=== PATIENT | male | born 1945 | race Caucasian/White ===

== ENCOUNTER → 2016-10-16 | Outpatient (CLI) | payer OTHER ==
[2015-03-29 08:50] VITALS: BP 139/98
[~2016-10-16] MED LIST: FURO-68 PO; SPIR1TAB PO; VENTOLIN HFA18 GM IH
--- NOTE | 2016-10-16 09:06 | RAD ---
Indication abdominal pain. Evaluate for potential cirrhosis. The examination was targeted to the right upper quadrant. No prior imaging is available. A focal mass lesion is not seen in the visualized liver. There is some increased attenuation of the ultrasound beam by the liver compatible with fatty infiltration. The gallbladder appears normal. The common bile duct diameter of approximately 5 mm is normal. The right kidney appears unremarkable. The visualized inferior vena cava appeared normal. The pancreas was poorly visualized and largely obscured. IMPRESSION: Fatty infiltration of the liver. No definite acute or significant finding seen in the right upper quadrant
== END | disposition home or self-care (01) ==
LOC: US 07:38
PROVIDERS: ATTEND Family Medicine
DX: F10.10 Alcohol abuse, uncomplicated (principal); R10.9 Unspecified abdominal pain; K74.60 Unspecified cirrhosis of liver
CPT/HCPCS: 76705

== ENCOUNTER 2017-05-01 19:53 | Inpatient (IN) | payer OTHER ==
[2017-05-01 20:13] LABS: BASO % 0 % (0-3); EOS % 0 % (0-3); HEMATOCRIT 45.3 % (39.0-53.0); HEMOGLOBIN 15.4 g/dL (13.0-17.5); LYMPH # 0.8 x10^3/uL (1.0-4.8); LYMPH % 4 % (24-48); MEAN CORPUSCULAR HEMOGLOBIN 31 pg (25-35); MEAN CORPUSCULAR HGB CONC 34 g/dL (31-37); MEAN CORPUSCULAR VOLUME 92 fL (79-100); MONO # 1.5 x10^3/uL (0.0-1.1); MONO % 8 % (0-9); NEUT # 17.1 x10^3uL (1.8-7.7); NEUT % 88 % (31-73); PLATELET COUNT 343 x10^3/uL (140-400); RED BLOOD COUNT 4.91 x10^6/uL (4.30-5.70); RED CELL DISTRIBUTION WIDTH 13.6 % (11.5-14.5); WHITE BLOOD COUNT 19.4 x10^3/uL (4.0-11.0)
[2017-05-01 20:14] LABS: ADD MAN DIFF? YES
[2017-05-01 20:15] LABS: BILIRUBIN,URINE SMALL (NEG); CLARITY,URINE CLEAR; COLOR,URINE YELLOW; GLUCOSE,URINE NEGATIVE (NEG); NITRITE,URINE NEGATIVE (NEG); PROTEIN,URINE 100 mg/dL (NEG-TRACE)
[2017-05-01 20:20] LABS: RBC,URINE OCC /HPF (0-2)
[2017-05-01 20:21] LABS: BACTERIA,URINE 0 /HPF (0-FEW); HYALINE CASTS, URINE MODERATE /HPF; WBC,URINE 0 /HPF (0-4)
[2017-05-01 20:22] LABS: BARBITURATES NEG (NEG); BENZODIAZEPINES NEG (NEG); CANNABINOIDS NEG (NEG); COCAINE NEG (NEG); METHADONE NEG (NEG); OPIATES NEG (NEG); PHENCYCLIDINE NEG (NEG)
[2017-05-01 20:23] LABS: PROTHROMBIN TIME PATIENT 12.8 SEC (11.7-14.0)
[2017-05-01 20:26] LABS: ANION GAP 9 (6-14); BLOOD UREA NITROGEN 17 mg/dL (8-26); BUN/CREATININE RATIO 21 (6-20); CALCIUM 9.1 mg/dL (8.5-10.1); CARBON DIOXIDE 35 mmol/L (21-32); CHLORIDE 90 mmol/L (98-107); CREATININE 0.8 mg/dL (0.7-1.3); GFR 95.8; GLUCOSE 117 mg/dL (70-99); POTASSIUM 3.4 mmol/L (3.5-5.1); SODIUM 134 mmol/L (136-145)
[2017-05-01 20:27] LABS: ETHANOL < 10 mg/dL (0-10)
[2017-05-01 20:27] LABS: AMPHETAMINE/METHAMPHETAMINE NEG (NEG); ETHANOL, URINE NEG (NEG)
[2017-05-01 20:34] LABS: LACTIC ACID 1.8 mmol/L (0.4-2.0)
[2017-05-01 20:34] LABS: ALBUMIN 3.8 g/dL (3.4-5.0); ALK PHOS 52 U/L (46-116); ALT (SGPT) 87 U/L (16-63); AST (SGOT) 239 U/L (15-37); LIPASE 45 U/L (73-393); TOTAL BILIRUBIN 0.6 mg/dL (0.2-1.0); TOTAL PROTEIN 7.7 g/dL (6.4-8.2)
[2017-05-01 20:36] LABS: TROPONINI 0.061 ng/mL (0.000-0.055)
[2017-05-01] MEDS ORDERED: PIP/TAZO PER PHARMACY MC (20:45)
[2017-05-01 20:47] LABS: BASE EXCESS ABG 8 mmol/L (-3-3); HCO3 ABG 35 mmol/L (21-28); PCO2 ABG 54 mmHg (35-46); PH ABG 7.42 (7.35-7.45); PO2 ABG 311 mmHg (65-108); SAT O2 ABG 99 % (92-99)
[2017-05-01 21:10] LABS: CREATINE KINASE 9384 U/L (39-308)
[2017-05-01 21:16] LABS: % BANDS 5 % (0-9); % LYMPHS 6 % (24-48); % MONOS 7 % (0-10); % SEGS 82 % (35-66); PLT ESTIMATE ADEQUATE (ADEQUATE)
[2017-05-01 21:21] LABS: INFLUENZA A PATIENT NEGATIVE (NEGATIVE); INFLUENZA B PATIENT NEGATIVE (NEGATIVE); OBC FLU VALID
[2017-05-01] MEDS ORDERED: VANCOMYCIN 2 GM in IV DEXTROSE 5% 500 ML IV (21:30)
[2017-05-01] MEDS: PIPERACILLIN/TAZO IV Push 4.5 GM VIAL. IVP (21:31)
[2017-05-01] MEDS: IV NORMAL SALINE 1000ML BAG 1,000 ML IV (21:32)
[2017-05-01] MEDS: VANCOMYCIN 2 GM in IV DEXTROSE 5 %-0.2 % NACL 500 ML IV (21:33)
[2017-05-01] MEDS: ASPIRIN 300 MG SUPP.RECT PR (21:34)
[2017-05-01] MEDS ORDERED: SODIUM BICARBONATE VIAL 50 MEQ in IV 1/2 NORMAL SALINE 1,000 ML IV (22:00)
[2017-05-01] MEDS: SODIUM BICARBONATE VIAL 150 MEQ in IV STERILE WATER 1,000 ML IV (22:16)
[2017-05-01] MEDS: FOSPHENYTOIN IV (22:17)
[2017-05-01] MEDS: NORMAL SALINE IV (22:17)
[2017-05-02] MEDS: VANCOMYCIN PER PHARMACY MC ×2 (00:37→10:49)
[2017-05-02] MEDS: MULTIVIT INFUSN,ADULT 4,VIT K 10 ML, THIAMINE 100 MG, FOLIC ACID 1 MG in IV RINGERS,LAC... IV (01:32)
[2017-05-02 05:20] LABS: ADD MAN DIFF? NO
[2017-05-02] MEDS: PIPERACILLIN/TAZO IV Push 3.375 GM VIAL. IVP ×3 (05:47→17:56)
[2017-05-02 05:55] LABS: BASO % 0 % (0-3); EOS % 0 % (0-3); HEMATOCRIT 36.5 % (39.0-53.0); HEMOGLOBIN 12.2 g/dL (13.0-17.5); LYMPH # 1.3 x10^3/uL (1.0-4.8); LYMPH % 8 % (24-48); MEAN CORPUSCULAR HEMOGLOBIN 31 pg (25-35); MEAN CORPUSCULAR HGB CONC 33 g/dL (31-37); MEAN CORPUSCULAR VOLUME 93 fL (79-100); MONO # 1.7 x10^3/uL (0.0-1.1); MONO % 10 % (0-9); NEUT # 13.7 x10^3uL (1.8-7.7); NEUT % 82 % (31-73); PLATELET COUNT 295 x10^3/uL (140-400); RED BLOOD COUNT 3.94 x10^6/uL (4.30-5.70); RED CELL DISTRIBUTION WIDTH 14.1 % (11.5-14.5); WHITE BLOOD COUNT 16.7 x10^3/uL (4.0-11.0)
[2017-05-02 06:16] LABS: ALBUMIN 2.8 g/dL (3.4-5.0); ALBUMIN/GLOBULIN RATIO 0.9 (1.0-1.7); ALK PHOS 37 U/L (46-116); ALT (SGPT) 77 U/L (16-63); ANION GAP 3 (6-14); AST (SGOT) 213 U/L (15-37); BLOOD UREA NITROGEN 17 mg/dL (8-26); BUN/CREATININE RATIO 21 (6-20); CARBON DIOXIDE 40 mmol/L (21-32); CHLORIDE 93 mmol/L (98-107); CREATININE 0.8 mg/dL (0.7-1.3); GFR 95.8; GLUCOSE 118 mg/dL (70-99); SODIUM 136 mmol/L (136-145); TOTAL BILIRUBIN 0.6 mg/dL (0.2-1.0)
[2017-05-02 06:28] LABS: POTASSIUM 2.6 mmol/L (3.5-5.1)
[2017-05-02 06:35] LABS: THYROID STIM HORMONE (TSH) 0.338 uIU/mL (0.358-3.74)
[2017-05-02 06:44] LABS: CREATINE KINASE 7620 U/L (39-308)
[2017-05-02] MEDS: POTASSIUM CHLORIDE 20 MEQ/15 ML ORAL LIQUID. PEG (07:51)
[2017-05-02] MEDS: SODIUM BICARBONATE VIAL 50 MEQ in IV 1/2 NORMAL SALINE 1,000 ML IV (07:51)
[2017-05-02] MEDS: FOLIC ACID 1 MG TABLET. PO (08:38)
[2017-05-02] MEDS: MULTIVITAMIN with MINERAL TABLET. PO (08:38)
[2017-05-02] MEDS: LACTOBACILLUS RHAMNOSUS GG 1 CAPSULE. PO (08:38)
[2017-05-02] MEDS: THIAMINE 100 MG TABLET. PO (08:38)
[2017-05-02] MEDS: VANCOMYCIN 1.25 GM in IV DEXTROSE 5% 250 ML IV ×2 (09:08→21:31)
[2017-05-02] MEDS: IPRATRPIUM/ALBUTEROL 0.5/2.5MG 3 ML NEBU. NEB ×4 (09:11→19:30)
[2017-05-02] MEDS ORDERED: ACETAMINOPHEN 650 MG SUPP.RECT. PR (09:45)
[2017-05-02] MEDS: ENOXAPARIN 40 MG/0.4 ML SYRINGE. SQ ×2 (09:58)
[2017-05-02] MEDS: IV NORMAL SALINE 1000ML BAG 1,000 ML IV ×8 (09:58→15:56)
[2017-05-02] MEDS ORDERED: IV NORMAL SALINE 1000ML BAG 1,000 ML IV (10:15)
[2017-05-02 11:06] LABS: ANION GAP 3 (6-14); BLOOD UREA NITROGEN 16 mg/dL (8-26); CALCIUM 7.5 mg/dL (8.5-10.1); CARBON DIOXIDE 37 mmol/L (21-32); CHLORIDE 96 mmol/L (98-107); CREATININE 0.9 mg/dL (0.7-1.3); GFR 83.7; GLUCOSE 157 mg/dL (70-99); MAGNESIUM 2.1 mg/dL (1.8-2.4); POTASSIUM 3.3 mmol/L (3.5-5.1); SODIUM 136 mmol/L (136-145)
[2017-05-02] MEDS: FLUMAZENIL 0.5 MG/5 ML VIAL. IV ×2 (11:55→12:08)
[2017-05-02 12:04] LABS: BASE EXCESS ABG 11 mmol/L (-3-3); HCO3 ABG 36 mmol/L (21-28); PCO2 ABG 50 mmHg (35-46); PH ABG 7.48 (7.35-7.45); PO2 ABG 74 mmHg (65-108); SAT O2 ABG 95 % (92-99)
[2017-05-02 12:11] LABS: FIO2 ABG 100
[2017-05-02] MEDS ORDERED: IV NORMAL SALINE 500ML BAG 500 ML IV (12:15)
[2017-05-02 13:46] LABS: LACTIC ACID 1.2 mmol/L (0.4-2.0)
[2017-05-02 17:08] LABS: MRSA BY PCR Positive (Negative)
[2017-05-02 17:16] LABS: C-REACTIVE PROTEIN 46.1 mg/L (0-3.3)
[2017-05-02 18:11] LABS: SEDIMENTATION RATE 13 (0-15)
[2017-05-02] MEDS ORDERED: NOREPINEPHRIN PREMIX 250 ML IV (19:00)
[2017-05-02] MEDS: NOREPINEPHRIN PREMIX 250 ML IV (19:04)
[2017-05-03] MEDS: PIPERACILLIN/TAZO IV Push 3.375 GM VIAL. IVP ×2 (01:09→06:00)
[2017-05-03 05:50] LABS: VANC TR 19.3 mcg/mL (10.0-20.0)
[2017-05-03 05:58] LABS: CHOLESTEROL 101 mg/dL (0-200); HDLC 56 mg/dL (40-60); LDLC 35 mg/dL (0-100); NON-HDL CHOLESTEROL 45 mg/dL (0-129); TRIGLYCERIDES 51 mg/dL (0-150); VLDLC 10 mg/dL (0-40)
[2017-05-03 06:01] LABS: CHOLESTEROL/HDL RATIO 1.8
[2017-05-03] MEDS: VANCOMYCIN PER PHARMACY MC (08:28)
[2017-05-03] MEDS: IPRATRPIUM/ALBUTEROL 0.5/2.5MG 3 ML NEBU. NEB ×4 (08:44→19:25)
[2017-05-03] MEDS ORDERED: cefTRIAXone SODIUM 2 GM in IV DEXTROSE 5% 100 ML IV (09:00)
[2017-05-03 09:06] LABS: BASE EXCESS ABG 6 mmol/L (-3-3); HCO3 ABG 30 mmol/L (21-28); PCO2 ABG 43 mmHg (35-46); PH ABG 7.47 (7.35-7.45); PO2 ABG 78 mmHg (65-108); SAT O2 ABG 96 % (92-99)
[2017-05-03 09:08] LABS: FIO2 ABG 40
[2017-05-03] MEDS: THIAMINE 100 MG TABLET. PO (09:26)
[2017-05-03] MEDS: MULTIVITAMIN with MINERAL TABLET. PO (09:26)
[2017-05-03] MEDS: ENOXAPARIN 40 MG/0.4 ML SYRINGE. SQ (09:26)
[2017-05-03] MEDS: FOLIC ACID 1 MG TABLET. PO (09:26)
[2017-05-03] MEDS: cefTRIAXone IV Push 2 GM VIAL. IVP ×2 (09:36→21:10)
[2017-05-03] MEDS: AMPICILLIN SODIUM IV Push 2 GM VIAL. IVP ×4 (09:38→19:46)
[2017-05-03] MEDS: VANCOMYCIN 1.5 GM in IV DEXTROSE 5 %-0.2 % NACL 500 ML IV ×2 (09:42→21:10)
[2017-05-03 10:08] LABS: VITAMIN-B12 394 pg/mL (247-911)
[2017-05-03] MEDS: IV NORMAL SALINE 1000ML BAG 1,000 ML IV (11:42)
[2017-05-03] MEDS ORDERED: AMPICILLIN SODIUM 2 GM in IV NORMAL SALINE 100ML 100 ML IV (12:00)
[2017-05-03] MEDS ORDERED: MAGNESIUM SULFATE 2GM 50 ML IV ×2 (12:30→13:15)
[2017-05-03 12:44] LABS: ANION GAP 9 (6-14); BLOOD UREA NITROGEN 11 mg/dL (8-26); CALCIUM 7.6 mg/dL (8.5-10.1); CARBON DIOXIDE 33 mmol/L (21-32); CHLORIDE 100 mmol/L (98-107); CREATININE 0.7 mg/dL (0.7-1.3); GFR 111.8; GLUCOSE 105 mg/dL (70-99); SODIUM 142 mmol/L (136-145)
[2017-05-03 13:11] LABS: RHEUMATOID FACTOR 10.4 IU/mL (0.0-13.9)
[2017-05-03] MEDS ORDERED: POTASSIUM CHLORIDE 20MEQ 50 ML IV ×2 (13:15)
[2017-05-03] MEDS: POTASSIUM CHLORIDE 10MEQ 100 ML IV ×5 (14:04→17:33)
[2017-05-03] MEDS: AMINO AC 3%/ELECTROLYTE/GLYCER 1,000 ML IV (14:07)
[2017-05-03 18:35] LABS: POTASSIUM 3.6 mmol/L (3.5-5.1)
[2017-05-04] MEDS: AMPICILLIN SODIUM IV Push 2 GM VIAL. IVP ×7 (00:01→23:32)
[2017-05-04 01:06] LABS: POTASSIUM 3.3 mmol/L (3.5-5.1)
[2017-05-04] MEDS: POTASSIUM CHLORIDE 10MEQ 100 ML IV ×4 (02:14→06:24)
[2017-05-04] MEDS: AMINO AC 3%/ELECTROLYTE/GLYCER 1,000 ML IV ×2 (02:57→18:16)
[2017-05-04 07:45] LABS: ADD MAN DIFF? NO
[2017-05-04 07:50] LABS: BASO # 0.1 x10^3/uL (0.0-0.2); BASO % 0 % (0-3); EOS # 0.1 x10^3/uL (0.0-0.7); EOS % 1 % (0-3); HEMATOCRIT 36.2 % (39.0-53.0); HEMOGLOBIN 11.8 g/dL (13.0-17.5); LYMPH # 1.4 x10^3/uL (1.0-4.8); LYMPH % 10 % (24-48); MEAN CORPUSCULAR HEMOGLOBIN 31 pg (25-35); MEAN CORPUSCULAR HGB CONC 33 g/dL (31-37); MEAN CORPUSCULAR VOLUME 94 fL (79-100); MONO # 1.4 x10^3/uL (0.0-1.1); MONO % 10 % (0-9); NEUT # 10.9 x10^3uL (1.8-7.7); NEUT % 78 % (31-73); PLATELET COUNT 263 x10^3/uL (140-400); RED BLOOD COUNT 3.84 x10^6/uL (4.30-5.70); RED CELL DISTRIBUTION WIDTH 14.1 % (11.5-14.5); WHITE BLOOD COUNT 13.9 x10^3/uL (4.0-11.0)
[2017-05-04 07:58] LABS: MAGNESIUM 2.2 mg/dL (1.8-2.4)
[2017-05-04 08:10] LABS: ALBUMIN 2.2 g/dL (3.4-5.0); ALBUMIN/GLOBULIN RATIO 0.7 (1.0-1.7); ALK PHOS 34 U/L (46-116); ALT (SGPT) 52 U/L (16-63); ANION GAP 7 (6-14); AST (SGOT) 69 U/L (15-37); BLOOD UREA NITROGEN 9 mg/dL (8-26); BUN/CREATININE RATIO 13 (6-20); CALCIUM 7.7 mg/dL (8.5-10.1); CARBON DIOXIDE 29 mmol/L (21-32); CHLORIDE 103 mmol/L (98-107); CREATININE 0.7 mg/dL (0.7-1.3); GFR 111.8; GLUCOSE 103 mg/dL (70-99); PHOSPHORUS 1.5 mg/dL (2.6-4.7); SODIUM 139 mmol/L (136-145); TOTAL BILIRUBIN 0.3 mg/dL (0.2-1.0); TOTAL PROTEIN 5.5 g/dL (6.4-8.2)
[2017-05-04 08:21] LABS: CREATINE KINASE 1452 U/L (39-308)
[2017-05-04] MEDS: VANCOMYCIN 1.5 GM in IV DEXTROSE 5 %-0.2 % NACL 500 ML IV ×2 (08:33→20:42)
[2017-05-04] MEDS: ENOXAPARIN 40 MG/0.4 ML SYRINGE. SQ ×3 (08:34→13:08)
[2017-05-04] MEDS: THIAMINE 100 MG TABLET. PO (08:34)
[2017-05-04] MEDS: MULTIVITAMIN with MINERAL TABLET. PO (08:34)
[2017-05-04] MEDS: FOLIC ACID 1 MG TABLET. PO (08:34)
[2017-05-04] MEDS: cefTRIAXone IV Push 2 GM VIAL. IVP ×2 (08:35→20:42)
[2017-05-04] MEDS: VANCOMYCIN PER PHARMACY MC (09:09)
[2017-05-04] MEDS: IPRATRPIUM/ALBUTEROL 0.5/2.5MG 3 ML NEBU. NEB ×4 (09:52→19:32)
[2017-05-04] MEDS ORDERED: LIDOCAINE WITH 8.4% SOD BICARB 3 ML DISP.SYRIN. IJ (11:50)
[2017-05-04] MEDS: LIDOCAINE WITH 8.4% SOD BICARB 3 ML DISP.SYRIN. IJ (12:26)
[2017-05-04] MEDS: SODIUM PHOSPHATE 20 MMOL in IV DEXTROSE 5% 250 ML IV (13:48)
[2017-05-04] MEDS: POTASSIUM PHOSPHATE DIBASIC 20 MMOL in IV NORMAL SALINE 250ML 250 ML IV ×2 (13:50→17:01)
[2017-05-04 18:40] LABS: POTASSIUM 4.4 mmol/L (3.5-5.1)
[2017-05-04 20:23] LABS: SPECIMEN SOURCE Urine (.); STREP PNEUMO ANTIGEN Negative (Negative)
[2017-05-05] MEDS: AMPICILLIN SODIUM IV Push 2 GM VIAL. IVP ×2 (04:00→08:23)
[2017-05-05 05:11] LABS: ADD MAN DIFF? NO
[2017-05-05 05:18] LABS: BASO % 0 % (0-3); EOS # 0.1 x10^3/uL (0.0-0.7); EOS % 1 % (0-3); HEMATOCRIT 34.9 % (39.0-53.0); HEMOGLOBIN 11.7 g/dL (13.0-17.5); LYMPH # 1.5 x10^3/uL (1.0-4.8); LYMPH % 12 % (24-48); MEAN CORPUSCULAR HEMOGLOBIN 31 pg (25-35); MEAN CORPUSCULAR HGB CONC 34 g/dL (31-37); MEAN CORPUSCULAR VOLUME 94 fL (79-100); MONO # 1.2 x10^3/uL (0.0-1.1); MONO % 10 % (0-9); NEUT # 9.5 x10^3uL (1.8-7.7); NEUT % 77 % (31-73); PLATELET COUNT 284 x10^3/uL (140-400); RED BLOOD COUNT 3.73 x10^6/uL (4.30-5.70); RED CELL DISTRIBUTION WIDTH 14.4 % (11.5-14.5); WHITE BLOOD COUNT 12.3 x10^3/uL (4.0-11.0)
[2017-05-05 05:35] LABS: CREATINE KINASE 956 U/L (39-308)
[2017-05-05 05:40] LABS: MAGNESIUM 1.9 mg/dL (1.8-2.4)
[2017-05-05 07:25] LABS: ALBUMIN 2.2 g/dL (3.4-5.0); ANION GAP 10 (6-14); BLOOD UREA NITROGEN 9 mg/dL (8-26); CALCIUM 7.9 mg/dL (8.5-10.1); CARBON DIOXIDE 29 mmol/L (21-32); CHLORIDE 103 mmol/L (98-107); CREATININE 0.7 mg/dL (0.7-1.3); GFR 111.8; GLUCOSE 107 mg/dL (70-99); PHOSPHORUS 3.8 mg/dL (2.6-4.7); POTASSIUM 4.1 mmol/L (3.5-5.1); SODIUM 142 mmol/L (136-145)
[2017-05-05] MEDS: AMINO AC 3%/ELECTROLYTE/GLYCER 1,000 ML IV ×2 (07:36→15:15)
[2017-05-05] MEDS: IPRATRPIUM/ALBUTEROL 0.5/2.5MG 3 ML NEBU. NEB ×4 (07:40→19:43)
[2017-05-05] MEDS: ENOXAPARIN 40 MG/0.4 ML SYRINGE. SQ (08:23)
[2017-05-05] MEDS: THIAMINE 100 MG TABLET. PO (08:24)
[2017-05-05] MEDS: MULTIVITAMIN with MINERAL TABLET. PO (08:24)
[2017-05-05] MEDS: FOLIC ACID 1 MG TABLET. PO (08:24)
[2017-05-05] MEDS: cefTRIAXone IV Push 2 GM VIAL. IVP (08:24)
[2017-05-05] MEDS: VANCOMYCIN 1.5 GM in IV DEXTROSE 5 %-0.2 % NACL 500 ML IV (08:28)
[2017-05-05] MEDS ORDERED: AMPICILLIN/SULBACTAM 3 GM in IV NORMAL SALINE 100ML 100 ML IV (12:00)
[2017-05-05 13:50] LABS: POTASSIUM 3.9 mmol/L (3.5-5.1)
[2017-05-05] MEDS: AMPICILLIN/SULBACTAM IV Push 3 GM VIAL. IVP ×2 (14:46→21:01)
[2017-05-05] MEDS: ASPIRIN 325 MG TABLET PO (14:46)
[2017-05-05 21:36] LABS: POTASSIUM 3.8 mmol/L (3.5-5.1)
[2017-05-05 23:04] LABS: POC GLUCOSE 109 mg/dL (70-99)
[2017-05-06] MEDS: AMPICILLIN/SULBACTAM IV Push 3 GM VIAL. IVP ×3 (01:29→13:00)
[2017-05-06 05:27] LABS: ADD MAN DIFF? NO
[2017-05-06 06:06] LABS: MAGNESIUM 1.9 mg/dL (1.8-2.4)
[2017-05-06 06:06] LABS: BASO # 0.1 x10^3/uL (0.0-0.2); BASO % 1 % (0-3); EOS # 0.3 x10^3/uL (0.0-0.7); EOS % 3 % (0-3); HEMATOCRIT 31.7 % (39.0-53.0); HEMOGLOBIN 10.6 g/dL (13.0-17.5); LYMPH # 1.4 x10^3/uL (1.0-4.8); LYMPH % 13 % (24-48); MEAN CORPUSCULAR HEMOGLOBIN 31 pg (25-35); MEAN CORPUSCULAR HGB CONC 33 g/dL (31-37); MEAN CORPUSCULAR VOLUME 94 fL (79-100); MONO # 1.2 x10^3/uL (0.0-1.1); MONO % 12 % (0-9); NEUT # 7.4 x10^3uL (1.8-7.7); NEUT % 72 % (31-73); PLATELET COUNT 277 x10^3/uL (140-400); RED BLOOD COUNT 3.39 x10^6/uL (4.30-5.70); RED CELL DISTRIBUTION WIDTH 14.2 % (11.5-14.5); WHITE BLOOD COUNT 10.4 x10^3/uL (4.0-11.0)
[2017-05-06 06:08] LABS: ANION GAP 6 (6-14); BLOOD UREA NITROGEN 11 mg/dL (8-26); CALCIUM 7.6 mg/dL (8.5-10.1); CARBON DIOXIDE 30 mmol/L (21-32); CHLORIDE 106 mmol/L (98-107); CREATININE 0.6 mg/dL (0.7-1.3); GFR 133.6; GLUCOSE 110 mg/dL (70-99); PHOSPHORUS 4.3 mg/dL (2.6-4.7); SODIUM 142 mmol/L (136-145)
[2017-05-06 06:10] LABS: CREATINE KINASE 488 U/L (39-308)
[2017-05-06] MEDS: METOPROLOL TARTRATE 5 MG/5 ML VIAL. IVP (06:36)
[2017-05-06] MEDS: IPRATRPIUM/ALBUTEROL 0.5/2.5MG 3 ML NEBU. NEB ×4 (07:16→20:06)
[2017-05-06] MEDS: ASPIRIN 325 MG TABLET PO (09:21)
[2017-05-06] MEDS: FOLIC ACID 1 MG TABLET. PO (09:21)
[2017-05-06] MEDS: MULTIVITAMIN with MINERAL TABLET. PO (09:21)
[2017-05-06] MEDS: ENOXAPARIN 40 MG/0.4 ML SYRINGE. SQ (09:21)
[2017-05-06] MEDS: THIAMINE 100 MG TABLET. PO (09:21)
[2017-05-06 12:14] LABS: HSV 1 IGM <1:10 titer (<1:10); HSV 2 IGM <1:10 titer (<1:10)
[2017-05-07 06:05] LABS: ADD MAN DIFF? NO
[2017-05-07 06:25] LABS: BASO # 0.1 x10^3/uL (0.0-0.2); BASO % 1 % (0-3); EOS # 0.4 x10^3/uL (0.0-0.7); EOS % 3 % (0-3); HEMATOCRIT 34.8 % (39.0-53.0); HEMOGLOBIN 11.5 g/dL (13.0-17.5); LYMPH # 1.5 x10^3/uL (1.0-4.8); LYMPH % 12 % (24-48); MEAN CORPUSCULAR HEMOGLOBIN 31 pg (25-35); MEAN CORPUSCULAR HGB CONC 33 g/dL (31-37); MEAN CORPUSCULAR VOLUME 94 fL (79-100); MONO # 1.5 x10^3/uL (0.0-1.1); MONO % 12 % (0-9); NEUT # 9.6 x10^3uL (1.8-7.7); NEUT % 73 % (31-73); PLATELET COUNT 336 x10^3/uL (140-400); RED BLOOD COUNT 3.71 x10^6/uL (4.30-5.70); RED CELL DISTRIBUTION WIDTH 14.5 % (11.5-14.5)
[2017-05-07 06:29] LABS: MAGNESIUM 1.8 mg/dL (1.8-2.4)
[2017-05-07 06:31] LABS: ALBUMIN 2.3 g/dL (3.4-5.0); ANION GAP 5 (6-14); BLOOD UREA NITROGEN 12 mg/dL (8-26); CALCIUM 8.4 mg/dL (8.5-10.1); CARBON DIOXIDE 31 mmol/L (21-32); CHLORIDE 107 mmol/L (98-107); CREATININE 0.7 mg/dL (0.7-1.3); GFR 111.8; GLUCOSE 118 mg/dL (70-99); PHOSPHORUS 4.5 mg/dL (2.6-4.7); POTASSIUM 4.1 mmol/L (3.5-5.1); SODIUM 143 mmol/L (136-145)
[2017-05-07 06:35] LABS: CREATINE KINASE 396 U/L (39-308)
[2017-05-07] MEDS: IPRATRPIUM/ALBUTEROL 0.5/2.5MG 3 ML NEBU. NEB ×4 (07:29→20:38)
[2017-05-07] MEDS: ASPIRIN 325 MG TABLET PO (08:43)
[2017-05-07] MEDS: THIAMINE 100 MG TABLET. PO (08:43)
[2017-05-07] MEDS: MULTIVITAMIN with MINERAL TABLET. PO (08:43)
[2017-05-07] MEDS: FOLIC ACID 1 MG TABLET. PO (08:43)
[2017-05-07] MEDS: ENOXAPARIN 40 MG/0.4 ML SYRINGE. SQ (08:52)
[2017-05-07 12:15] LABS: WEST NILE IGG Negative (Negative); WEST NILE IGM Negative (Negative)
[2017-05-08 06:08] LABS: ADD MAN DIFF? NO
[2017-05-08 06:17] LABS: BASO # 0.1 x10^3/uL (0.0-0.2); BASO % 1 % (0-3); EOS # 0.3 x10^3/uL (0.0-0.7); EOS % 3 % (0-3); HEMATOCRIT 34.7 % (39.0-53.0); HEMOGLOBIN 11.4 g/dL (13.0-17.5); LYMPH # 1.5 x10^3/uL (1.0-4.8); LYMPH % 12 % (24-48); MEAN CORPUSCULAR HEMOGLOBIN 31 pg (25-35); MEAN CORPUSCULAR HGB CONC 33 g/dL (31-37); MEAN CORPUSCULAR VOLUME 93 fL (79-100); MONO # 1.4 x10^3/uL (0.0-1.1); MONO % 12 % (0-9); NEUT # 8.9 x10^3uL (1.8-7.7); NEUT % 73 % (31-73); PLATELET COUNT 382 x10^3/uL (140-400); RED BLOOD COUNT 3.72 x10^6/uL (4.30-5.70); RED CELL DISTRIBUTION WIDTH 14.3 % (11.5-14.5); WHITE BLOOD COUNT 12.2 x10^3/uL (4.0-11.0)
[2017-05-08 07:04] LABS: ALBUMIN 2.5 g/dL (3.4-5.0); ANION GAP 8 (6-14); BLOOD UREA NITROGEN 14 mg/dL (8-26); CALCIUM 8.8 mg/dL (8.5-10.1); CARBON DIOXIDE 28 mmol/L (21-32); CHLORIDE 108 mmol/L (98-107); CREATININE 0.7 mg/dL (0.7-1.3); GFR 111.8; GLUCOSE 131 mg/dL (70-99); PHOSPHORUS 5.2 mg/dL (2.6-4.7); POTASSIUM 4.4 mmol/L (3.5-5.1); SODIUM 144 mmol/L (136-145)
[2017-05-08 07:08] LABS: CREATINE KINASE 504 U/L (39-308)
[2017-05-08 07:09] LABS: MAGNESIUM 1.7 mg/dL (1.8-2.4)
[2017-05-08] MEDS: IPRATRPIUM/ALBUTEROL 0.5/2.5MG 3 ML NEBU. NEB ×4 (07:11→20:16)
[2017-05-08] MEDS: MULTIVITAMIN with MINERAL TABLET. PO (08:35)
[2017-05-08] MEDS: ENOXAPARIN 40 MG/0.4 ML SYRINGE. SQ (08:35)
[2017-05-08] MEDS: FOLIC ACID 1 MG TABLET. PO (08:35)
[2017-05-08] MEDS: THIAMINE 100 MG TABLET. PO (08:35)
[2017-05-08] MEDS: ASPIRIN 325 MG TABLET PO (08:35)
[2017-05-08] MEDS ORDERED: ACETAMINOPHEN 500 MG TABLET PO (12:45)
[2017-05-08] MEDS ORDERED: ONDANSETRON PF 4 MG/2 ML VIAL. IV (12:45)
[2017-05-08] MEDS ORDERED: ONDANSETRON ODT 4 MG TAB.RAPDIS. PO (12:45)
[2017-05-08] MEDS: ACETAMINOPHEN 650 MG/20.3 ML SOLUTION. PEG (14:28)
[2017-05-09 05:24] LABS: ADD MAN DIFF? NO
[2017-05-09 05:34] LABS: BASO # 0.1 x10^3/uL (0.0-0.2); BASO % 1 % (0-3); EOS # 0.5 x10^3/uL (0.0-0.7); EOS % 4 % (0-3); HEMATOCRIT 33.8 % (39.0-53.0); HEMOGLOBIN 11.2 g/dL (13.0-17.5); LYMPH # 1.3 x10^3/uL (1.0-4.8); LYMPH % 10 % (24-48); MEAN CORPUSCULAR HEMOGLOBIN 31 pg (25-35); MEAN CORPUSCULAR HGB CONC 33 g/dL (31-37); MEAN CORPUSCULAR VOLUME 95 fL (79-100); MONO # 1.3 x10^3/uL (0.0-1.1); MONO % 10 % (0-9); NEUT # 10.6 x10^3uL (1.8-7.7); NEUT % 76 % (31-73); PLATELET COUNT 375 x10^3/uL (140-400); RED BLOOD COUNT 3.58 x10^6/uL (4.30-5.70); RED CELL DISTRIBUTION WIDTH 14.6 % (11.5-14.5); WHITE BLOOD COUNT 13.8 x10^3/uL (4.0-11.0)
[2017-05-09] MEDS: IPRATRPIUM/ALBUTEROL 0.5/2.5MG 3 ML NEBU. NEB ×4 (05:45→20:21)
[2017-05-09 06:08] LABS: ALBUMIN 2.4 g/dL (3.4-5.0); ANION GAP 4 (6-14); BLOOD UREA NITROGEN 18 mg/dL (8-26); CALCIUM 8.9 mg/dL (8.5-10.1); CARBON DIOXIDE 31 mmol/L (21-32); CHLORIDE 110 mmol/L (98-107); CREATININE 0.7 mg/dL (0.7-1.3); GFR 111.8; GLUCOSE 116 mg/dL (70-99); PHOSPHORUS 5.4 mg/dL (2.6-4.7); POTASSIUM 4.7 mmol/L (3.5-5.1); SODIUM 145 mmol/L (136-145)
[2017-05-09 06:11] LABS: CREATINE KINASE 306 U/L (39-308)
[2017-05-09] MEDS: FOLIC ACID 1 MG TABLET. PO (08:32)
[2017-05-09] MEDS: MULTIVITAMIN with MINERAL TABLET. PO (08:32)
[2017-05-09] MEDS: ASPIRIN 325 MG TABLET PO (08:32)
[2017-05-09] MEDS: THIAMINE 100 MG TABLET. PO (08:32)
[2017-05-09] MEDS: ACETAMINOPHEN 325 MG TABLET. PO (08:32)
[2017-05-09] MEDS: ENOXAPARIN 40 MG/0.4 ML SYRINGE. SQ (08:33)
[2017-05-09] MEDS: TPN PER PHARMACY MC (13:47)
[2017-05-09] MEDS: TOTAL PARENTERAL NUTRITION IV (20:49)
[2017-05-09] MEDS: AMINO ACIDS IV (20:49)
[2017-05-09] MEDS: [UNRECOGNIZED DRUG - OTHER] IV (20:49)
[2017-05-09] MEDS: DEXTROSE 70% IV (20:49)
[2017-05-10] MEDS: HALOPERIDOL LACTATE 5 MG/ML VIAL. IVP (01:58)
[2017-05-10 05:41] LABS: ADD MAN DIFF? NO
[2017-05-10 05:46] LABS: BASO # 0.1 x10^3/uL (0.0-0.2); BASO % 1 % (0-3); EOS # 0.3 x10^3/uL (0.0-0.7); EOS % 3 % (0-3); HEMATOCRIT 33.2 % (39.0-53.0); HEMOGLOBIN 10.9 g/dL (13.0-17.5); LYMPH # 1.4 x10^3/uL (1.0-4.8); LYMPH % 12 % (24-48); MEAN CORPUSCULAR HEMOGLOBIN 31 pg (25-35); MEAN CORPUSCULAR HGB CONC 33 g/dL (31-37); MEAN CORPUSCULAR VOLUME 95 fL (79-100); MONO # 1.3 x10^3/uL (0.0-1.1); MONO % 11 % (0-9); NEUT # 8.9 x10^3uL (1.8-7.7); NEUT % 74 % (31-73); PLATELET COUNT 370 x10^3/uL (140-400); RED CELL DISTRIBUTION WIDTH 14.4 % (11.5-14.5)
[2017-05-10 06:19] LABS: LACTIC ACID 0.7 mmol/L (0.4-2.0)
[2017-05-10 06:26] LABS: CREATINE KINASE 300 U/L (39-308)
[2017-05-10 07:11] LABS: SEDIMENTATION RATE 68 (0-15)
[2017-05-10 07:28] LABS: ALBUMIN 2.5 g/dL (3.4-5.0); ANION GAP 9 (6-14); BLOOD UREA NITROGEN 17 mg/dL (8-26); CALCIUM 8.3 mg/dL (8.5-10.1); CARBON DIOXIDE 28 mmol/L (21-32); CHLORIDE 107 mmol/L (98-107); CREATININE 0.7 mg/dL (0.7-1.3); GFR 111.8; GLUCOSE 120 mg/dL (70-99); PHOSPHORUS 3.9 mg/dL (2.6-4.7); POTASSIUM 4.1 mmol/L (3.5-5.1); SODIUM 144 mmol/L (136-145)
[2017-05-10] MEDS: ASPIRIN 325 MG TABLET PO (08:00)
[2017-05-10 08:14] LABS: MAGNESIUM 1.9 mg/dL (1.8-2.4)
[2017-05-10] MEDS: THIAMINE 100 MG TABLET. PO (08:42)
[2017-05-10] MEDS: FOLIC ACID 1 MG TABLET. PO (08:42)
[2017-05-10] MEDS: MULTIVITAMIN with MINERAL TABLET. PO (08:42)
[2017-05-10] MEDS: IPRATRPIUM/ALBUTEROL 0.5/2.5MG 3 ML NEBU. NEB ×4 (09:14→18:20)
[2017-05-10] MEDS: ENOXAPARIN 40 MG/0.4 ML SYRINGE. SQ (09:55)
[2017-05-10] MEDS: TPN PER PHARMACY MC ×2 (12:15→12:19)
[2017-05-10] MEDS: AMINO ACIDS IV (20:56)
[2017-05-10] MEDS: DEXTROSE 70% IV (20:56)
[2017-05-10] MEDS: TOTAL PARENTERAL NUTRITION IV (20:56)
[2017-05-10] MEDS: [UNRECOGNIZED DRUG - OTHER] IV (20:56)
[2017-05-10 21:47] LABS: POC GLUCOSE 117 mg/dL (70-99)
[2017-05-11 06:32] LABS: ANION GAP 8 (6-14); BLOOD UREA NITROGEN 18 mg/dL (8-26); CALCIUM 8.5 mg/dL (8.5-10.1); CARBON DIOXIDE 28 mmol/L (21-32); CHLORIDE 106 mmol/L (98-107); CREATININE 0.6 mg/dL (0.7-1.3); GFR 133.6; GLUCOSE 111 mg/dL (70-99); PHOSPHORUS 4.2 mg/dL (2.6-4.7); POTASSIUM 4.2 mmol/L (3.5-5.1); SODIUM 142 mmol/L (136-145)
[2017-05-11] MEDS: FOLIC ACID 1 MG TABLET. PO (07:51)
[2017-05-11] MEDS: THIAMINE 100 MG TABLET. PO (07:51)
[2017-05-11] MEDS: MULTIVITAMIN with MINERAL TABLET. PO (07:51)
[2017-05-11] MEDS: ASPIRIN 325 MG TABLET PO (07:51)
[2017-05-11 08:08] LABS: POC GLUCOSE 121 mg/dL (70-99)
[2017-05-11] MEDS: IPRATRPIUM/ALBUTEROL 0.5/2.5MG 3 ML NEBU. NEB ×4 (08:27→19:47)
[2017-05-11] MEDS: ENOXAPARIN 40 MG/0.4 ML SYRINGE. SQ (09:22)
[2017-05-11] MEDS: TPN PER PHARMACY MC (11:01)
[2017-05-11 11:45] LABS: POC GLUCOSE 141 mg/dL (70-99)
[2017-05-11] MEDS: BARIUM SULFATE 40% (APPLE) 148 GM PWD. PO (13:29)
[2017-05-11] MEDS ORDERED: DEXTROSE 70% IV (22:00)
[2017-05-11] MEDS ORDERED: [UNRECOGNIZED DRUG - OTHER] IV (22:00)
[2017-05-11] MEDS ORDERED: AMINO ACIDS IV (22:00)
[2017-05-11] MEDS ORDERED: TOTAL PARENTERAL NUTRITION IV (22:00)
[2017-05-11 22:27] LABS: POC GLUCOSE 94 mg/dL (70-99)
[2017-05-12 06:16] LABS: ANION GAP 11 (6-14); BLOOD UREA NITROGEN 20 mg/dL (8-26); CALCIUM 8.3 mg/dL (8.5-10.1); CARBON DIOXIDE 25 mmol/L (21-32); CHLORIDE 107 mmol/L (98-107); CREATININE 0.7 mg/dL (0.7-1.3); GFR 111.8; GLUCOSE 87 mg/dL (70-99); PHOSPHORUS 3.4 mg/dL (2.6-4.7); POTASSIUM 3.8 mmol/L (3.5-5.1); SODIUM 143 mmol/L (136-145)
[2017-05-12] MEDS: IPRATRPIUM/ALBUTEROL 0.5/2.5MG 3 ML NEBU. NEB ×4 (06:51→20:37)
[2017-05-12] MEDS: levETIRAcetam 500 MG TABLET PO ×2 (09:02→20:51)
[2017-05-12] MEDS: ASPIRIN 325 MG TABLET PO (09:02)
[2017-05-12] MEDS: FOLIC ACID 1 MG TABLET. PO (09:04)
[2017-05-12] MEDS: MULTIVITAMIN with MINERAL TABLET. PO (09:04)
[2017-05-12] MEDS: THIAMINE 100 MG TABLET. PO (09:04)
[2017-05-12] MEDS: ENOXAPARIN 40 MG/0.4 ML SYRINGE. SQ (09:06)
[2017-05-13] MEDS: IPRATRPIUM/ALBUTEROL 0.5/2.5MG 3 ML NEBU. NEB ×3 (06:58→14:52)
[2017-05-13] MEDS: ASPIRIN 325 MG TABLET PO (09:13)
[2017-05-13] MEDS: levETIRAcetam 500 MG TABLET PO (09:13)
[2017-05-13] MEDS: MULTIVITAMIN with MINERAL TABLET. PO (09:13)
[2017-05-13] MEDS: FOLIC ACID 1 MG TABLET. PO (09:13)
[2017-05-13] MEDS: THIAMINE 100 MG TABLET. PO (09:13)
[2017-05-13] MEDS: ENOXAPARIN 40 MG/0.4 ML SYRINGE. SQ (09:15)
== END 2017-05-13 15:20 | DRG 871 ==
LOC: 6 SOUTH 05-05 18:17 → ER 19:53 → 1 WEST ICU 21:39
PROC: 5A09357 Assistance with Respiratory Ventilation, Less than 24 Consecutive Hours, Continuous Positive Airway Pressure (ICD-10-PCS; principal; 2017-05-02)
PROC: 5A09357 Assistance with Respiratory Ventilation, Less than 24 Consecutive Hours, Continuous Positive Airway Pressure (ICD-10-PCS; 2017-05-03)
PROC: 05HM33Z Insertion of Infusion Device into Right Internal Jugular Vein, Percutaneous Approach (ICD-10-PCS; 2017-05-09)
PROC: B543ZZA Ultrasonography of Right Jugular Veins, Guidance (ICD-10-PCS; 2017-05-09)
PROC: 0DH673Z Insertion of Infusion Device into Stomach, Via Natural or Artificial Opening (ICD-10-PCS; 2017-05-09)
DX: A41.89 Other specified sepsis (principal); G92 Toxic encephalopathy; J96.01 Acute respiratory failure with hypoxia; I63.9 Cerebral infarction, unspecified; R65.21 Severe sepsis with septic shock; D69.6 Thrombocytopenia, unspecified; L89.159 Pressure ulcer of sacral region, unspecified stage; I27.20 Pulmonary hypertension, unspecified; J18.9 Pneumonia, unspecified organism; M62.82 Rhabdomyolysis; J44.0 Chronic obstructive pulmonary disease with (acute) lower respiratory infection; G25.3 Myoclonus; E87.6 Hypokalemia; F10.20 Alcohol dependence, uncomplicated; F17.210 Nicotine dependence, cigarettes, uncomplicated; I10 Essential (primary) hypertension; J32.0 Chronic maxillary sinusitis; J32.2 Chronic ethmoidal sinusitis; K02.9 Dental caries, unspecified; K63.5 Polyp of colon; K76.0 Fatty (change of) liver, not elsewhere classified; R13.12 Dysphagia, oropharyngeal phase; R47.02 Dysphasia; R56.9 Unspecified convulsions; R31.9 Hematuria, unspecified; S09.90XA Unspecified injury of head, initial encounter; Z79.82 Long term (current) use of aspirin; Z82.49 Family history of ischemic heart disease and other diseases of the circulatory system
CPT/HCPCS: 31720; 36415; 36556; 36569; 36600; 51702; 70450; 70486; 70551; 71010; 72125; 72170; 73110; 74000; 74230; 77001; 80048; 80053; 80061; 80069; 80202; 80307; 81001; 82550; 82607; 82805; 82962; 83605; 83690; 83735; 84100; 84132; 84443; 84484; 85007; 85025; 85610; 85651; 86140; 86431; 86695; 86788; 86789; 87040; 87205; 87449; 87641; 87804; 87804-59; 92526-GN; 92610-GN; 92611-GN; 93005; 93306; 93880; 93971; 94618; 94640; 94660; 94760; 95816; 96365; 96375; 97110-GO; 97110-GP; 97116-GP; 97163-GP; 97166-GO; 97530-GO; 97530-GP; 97535-GO; 99285-25; C1892; G0480; J0290; J0295; J0610; J0696; J1630; J1650; J1953; J2060; J2543; J3370; J3475; J3480; J3490; J7030; J7050; J7120; J7620; Q2009